=== PATIENT | male | born 1980 | race American Indian/Alaskan Native ===

== ENCOUNTER 2023-10-28 09:21 | Day surgery (SDC) | payer MEDICAID ==
[2023-10-23 13:46] LABS: BILIRUBIN,URINE NEGATIVE (Neg); CLARITY,URINE CLEAR (Clear); COLOR,URINE YELLOW (Yellow); GLUCOSE, URINE NEGATIVE (Neg); KETONES,URINE NEGATIVE (Neg); LEUKOCYTE ESTERASE ,URINE NEGATIVE (Neg); NITRITES, URINE NEGATIVE (Neg); OCCULT BLOOD,URINE TRACE-INTACT (Neg); PROTEIN,URINE 100 mg/dl (Neg); UROBILINOGEN,URINE 0.2 E.U/dL (0.2-1.0)
[2023-10-23 13:47] LABS: UA COLLECTION TYPE CLN CATCH MIDSTREAM
[2023-10-23 13:55] LABS: WBC,URINE 0-4 /HPF (0-4)
[2023-10-23 13:56] LABS: BACTERIA,URINE NONE SEEN /HPF (Neg); SQUAMOUS EPITHELIAL CELL,UR FEW /LPF (FEW)
[2023-10-23 13:58] LABS: BASOPHILS # (AUTO) 0.1 X10'3 (0-0.2); BASOPHILS % (AUTO) 1.3 % (0-1); EOSINOPHILS # (AUTO) 0.5 X10'3 (0-0.9); EOSINOPHILS % (AUTO) 7.6 % (0-6); HEMATOCRIT 39.6 % (42.0-52.0); HEMOGLOBIN 13.6 g/dl (14.0-17.9); LYMPHOCYTES # (AUTO) 2.1 X10'3 (1.1-4.8); LYMPHOCYTES % (AUTO) 29.8 % (21-51); MEAN CORPUSCULAR HEMOGLOBIN 34.2 PG (27.0-31.0); MEAN CORPUSCULAR HGB CONC 34.4 g/dL (33.0-36.5); MEAN CORPUSCULAR VOLUME 99.6 FL (78-98); MEAN PLATELET VOLUME 7.8 FL (7.4-10.4); MONOCYTES # (AUTO) 0.8 X10'3 (0-0.9); MONOCYTES % (AUTO) 11.2 % (2-12); NEUTROPHILS # (AUTO) 3.5 X10'3 (1.8-7.7); NEUTROPHILS % (AUTO) 50.1 % (42-75); PLATELET COUNT 318 X10'3 (140-440); RED BLOOD COUNT 3.97 X10'6 (4.70-6.10); RED CELL DISTRIBUTION WIDTH 14.3 % (11.5-14.5)
[2023-10-23 14:01] LABS: ALANINE AMINOTRANSFERASE 26 U/L (12-78); ANION GAP 11 (8-16); BILIRUBIN,TOTAL 0.3 MG/DL (0.1-1.0); CHLORIDE 107 MMOL/L (99-107); POTASSIUM 4.1 MMOL/L (3.5-5.1); SODIUM 142 MMOL/L (135-145); TOTAL CARBON DIOXIDE 23.8 MMOL/L (24-32)
[2023-10-23 14:22] LABS: ALBUMIN 3.1 G/DL (3.4-5.0); ALBUMIN/GLOBULIN RATIO 0.6 (1.1-1.5); ALKALINE PHOSPHATASE 124 IU/L (46-116); CALCIUM 8.8 MG/DL (8.5-10.1); GLUCOSE 86 MG/DL (70-104); TOTAL PROTEIN 8.3 G/DL (6.4-8.2)
[2023-10-23 14:31] LABS: ASPARTATE AMINO TRANSFERASE 29 U/L (10-37)
[2023-10-23 14:35] LABS: BLOOD UREA NITROGEN 19 MG/DL (7-18); BUN/CREATININE RATIO 15.8 (10.0-20.0); eGFR 66 ML/MIN
[2023-10-26] MEDS: DOCUMENT DATE & TIME OF BETA-BLOCKER PO ONE (05:30)
[~2023-10-28] VITALS: Ht 180.3 cm; Wt 84.9 kg
[2023-10-28] VITALS (11 sets, daily range): BP systolic 144–172; BP diastolic 97–117; PULSE 80–96; RESP 10–20; TEMP 98; O2SAT 85–100
[2023-10-28] MEDS: cefazolin 2gm/D5W 100mL 100 ML IV ONE (05:30)
[~2023-10-28 09:21] MED LIST: GLEC1TAB PO; INSU100C10 SQ; LANTUS SUBCUT; LOSA50TA64 PO; METF-900 PO; METO-395 PO; NALT50TA PO; SIMV-45 PO; SPIR25TA5 PO; THIA50TA10 PO; TRAM50TA2 PO
[2023-10-28] MEDS: ringers solution, lacted 1,000 ML IV SCH (10:06)
[2023-10-28] MEDS: famotidine 20mg tablet PO ONE (10:06)
[2023-10-28] MEDS ORDERED: BUPIVAcaine/PF 2.5mg/ml (0.25%) 10ml vial ONE ×3 (12:14→13:07)
[2023-10-28] MEDS ORDERED: povidone-iodine 10% ointment 1 APPLIC APPLIC TP ONE ×2 (12:14→12:15)
[2023-10-28] MEDS ORDERED: midazolam 1 mg/ML 2ml injection ONE (12:32)
[2023-10-28] MEDS ORDERED: fentaNYL/PF 50MCG/1 ML 2ML syringe ONE (12:32)
[2023-10-28] MEDS ORDERED: sevoflurane 250ml liquid IH ONE (12:47)
[2023-10-28] MEDS ORDERED: propofol inj 20 ML IV ONE ×2 (12:56→12:57)
[2023-10-28] MEDS ORDERED: LIDOcaine 1%/PF 5ML 10 MG/ML VIAL ONE (12:57)
[2023-10-28] MEDS ORDERED: ondansetron/PF 4mg/2ml inj ONE (12:57)
[2023-10-28] MEDS ORDERED: morphine 4 MG/ML inj SYRINge IV PRN (13:10)
[2023-10-28] MEDS ORDERED: ringers solution, lacted 1,000 ML IV SCH (13:10)
[2023-10-28] MEDS ORDERED: meperidine/PF 25mg/ml syringe IV PRN (13:10)
[2023-10-28] MEDS ORDERED: morphine 2 MG/ML inj. syringe IV PRN (13:10)
[2023-10-28] MEDS ORDERED: ondansetron/PF 4mg/2ml inj IV PRN (13:10)
[2023-10-28] MEDS: BUPIVAcaine/PF 2.5mg/ml (0.25%) 10ml vial IJ ONE (13:15)
[2023-10-28] MEDS: povidone-iodine 10% ointment 1 APPLIC APPLIC TP ONE (13:27)
[2023-10-28] MEDS: labetalol 20mg/4ml (5mg/ml) syringe IV PRN (14:04)
== END 2023-10-28 15:27 | disposition home or self-care (01) ==
LOC: PAS 09:21
PROVIDERS: ATTEND Podiatrist Foot & Ankle Surgery
DX: M86.8X7 Other osteomyelitis, ankle and foot (principal); I11.0 Hypertensive heart disease with heart failure; I50.9 Heart failure, unspecified; E11.9 Type 2 diabetes mellitus without complications; F41.9 Anxiety disorder, unspecified; F32.A Depression, unspecified; Z79.84 Long term (current) use of oral hypoglycemic drugs; Z79.891 Long term (current) use of opiate analgesic; Z79.899 Other long term (current) drug therapy; Z98.818 Other dental procedure status
CPT/HCPCS: 28315; 36415; 80053; 81001; 82948; 85025; 87070; 87075; 87077; 87186; A6223; J0690; J2250; J2405; J2704; J3010; J3490; J7030; J7120; Z7506; Z7512; 76000; A4618; A6449; A7000

== ENCOUNTER 2023-12-09 15:43 | Inpatient (IN) | payer MEDICAID ==
[~2023-12-09] VITALS: Ht 175.3 cm; Wt 85.0 kg
[2023-12-09 16:44] LABS: BASOPHILS # (AUTO) 0.1 X10'3 (0-0.2); BASOPHILS % (AUTO) 1.2 % (0-1); EOSINOPHILS # (AUTO) 0.4 X10'3 (0-0.9); EOSINOPHILS % (AUTO) 7.7 % (0-6); HEMATOCRIT 35.6 % (42.0-52.0); HEMOGLOBIN 11.9 g/dl (14.0-17.9); LYMPHOCYTES # (AUTO) 2.1 X10'3 (1.1-4.8); LYMPHOCYTES % (AUTO) 37.9 % (21-51); MEAN CORPUSCULAR HEMOGLOBIN 32.9 PG (27.0-31.0); MEAN CORPUSCULAR HGB CONC 33.4 g/dL (33.0-36.5); MEAN CORPUSCULAR VOLUME 98.4 FL (78-98); MEAN PLATELET VOLUME 6.8 FL (7.4-10.4); MONOCYTES # (AUTO) 0.6 X10'3 (0-0.9); MONOCYTES % (AUTO) 11.5 % (2-12); NEUTROPHILS # (AUTO) 2.3 X10'3 (1.8-7.7); NEUTROPHILS % (AUTO) 41.7 % (42-75); PLATELET COUNT 327 X10'3 (140-440); RED BLOOD COUNT 3.62 X10'6 (4.70-6.10); RED CELL DISTRIBUTION WIDTH 13.7 % (11.5-14.5); WHITE BLOOD COUNT 5.5 X10'3 (4.5-11.0)
[2023-12-09 17:08] LABS: ALANINE AMINOTRANSFERASE 66 U/L (12-78); ALBUMIN 2.8 G/DL (3.4-5.0); ALBUMIN/GLOBULIN RATIO 0.5 (1.1-1.5); ALKALINE PHOSPHATASE 191 IU/L (46-116); ANION GAP 11 (8-16); ASPARTATE AMINO TRANSFERASE 61 U/L (10-37); BILIRUBIN,TOTAL 0.3 MG/DL (0.1-1.0); BLOOD UREA NITROGEN 17 MG/DL (7-18); BUN/CREATININE RATIO 17.7 (10.0-20.0); CHLORIDE 106 MMOL/L (99-107); CREATININE 0.96 MG/DL (0.60-1.10); GLUCOSE 92 MG/DL (70-104); POTASSIUM 3.6 MMOL/L (3.5-5.1); SODIUM 138 MMOL/L (135-145); TOTAL CARBON DIOXIDE 20.8 MMOL/L (24-32); TOTAL PROTEIN 8.1 G/DL (6.4-8.2); eCRCL 105 ML/MIN; eGFR 85 ML/MIN
[2023-12-09 17:23] LABS: CALCIUM 8.3 MG/DL (8.5-10.1)
[2023-12-09 18:19] LABS: ALBUMIN 2.6 G/DL (3.4-5.0); ANION GAP 11 (8-16); BLOOD UREA NITROGEN 17 MG/DL (7-18); BUN/CREATININE RATIO 17.3 (10.0-20.0); CALCIUM 8.3 MG/DL (8.5-10.1); CHLORIDE 105 MMOL/L (99-107); CREATININE 0.98 MG/DL (0.60-1.10); GLUCOSE 100 MG/DL (70-104); POTASSIUM 3.7 MMOL/L (3.5-5.1); PROTHROMBIN TIME 10.7 SECONDS (9.0-12.0); SODIUM 139 MMOL/L (135-145); eCRCL 102 ML/MIN; eGFR 83 ML/MIN
[2023-12-09 18:36] LABS: APTT 26 SECONDS (22-32); PRE OP PROTIME 10.4 SECONDS (9.0-12.0)
[2023-12-09 21:05] VITALS: BP 156/108; PULSE 94; RESP 16; TEMP 98.1; O2SAT 100
[2023-12-09] MEDS ORDERED: morphine 2 MG/ML inj. syringe IV PRN (21:10)
[2023-12-09] MEDS ORDERED: ondansetron/PF 4mg/2ml inj IV PRN (21:10)
[2023-12-09] MEDS ORDERED: magnesium Cl slow-release 64mg tablet PO PRN (21:10)
[2023-12-09] MEDS ORDERED: potassium Cl 40MEQ/1/2NS 520ml 520 ML IV PRN (21:10)
[2023-12-09] MEDS ORDERED: magnesium 4gm in 100ml NS 100 ML IV PRN (21:10)
[2023-12-09] MEDS ORDERED: magnesium hydroxide 30ml (MOM) UD suspension PO PRN (21:10)
[2023-12-09] MEDS ORDERED: magnesium 2GM in 50ml NS 50 ML IV PRN (21:10)
[2023-12-09] MEDS ORDERED: acetaminophen 325mg tablet PO PRN (21:10)
[2023-12-09] MEDS ORDERED: potassium Cl 20 mEq SR tablet PO PRN (21:10)
[2023-12-09] MEDS ORDERED: mag hydrox/Alum hydrox/simeth 30ml oral suspension PO PRN (21:10)
[2023-12-09 21:15] VITALS: RESP 14; RESP 16; O2SAT 100; O2SAT 99
[2023-12-09] MEDS ORDERED: DEXTROSE 15 GM of carb/4 tabs (each vial/BOTTLE has 4 tablets) PO PRN ×2 (22:00)
[2023-12-09] MEDS ORDERED: dextrose 50%-water 50ml dispensing syringe IV PRN ×2 (22:00)
[2023-12-09] MEDS ORDERED: glucagon, human recombinant 1mg kit SUBCUT PRN (22:00)
[2023-12-09] MEDS: normal saline 1000ml 1,000 ML IV SCH (22:07)
[2023-12-09] MEDS: CefTRIAXone/D5W-Rocephin 1gm 50 ML IV SCH (22:17)
[2023-12-09] MEDS: VANCOmycin 1250MG/NS 250ml Bag 250 ML IV SCH (22:18)
[2023-12-09] MEDS: losartan 50mg tablet PO SCH (22:21)
[2023-12-09] MEDS: atorvastatin 20mg tablet PO SCH (22:22)
[2023-12-09 22:44] LABS: HEMOGLOBIN A1C 6.4 % (4.5-6.2)
[2023-12-09 22:47] LABS: C-REACTIVE PROTEIN 0.29 MG/DL (0.0-0.5)
[2023-12-10] VITALS (19 sets, daily range): BP systolic 91–160; BP diastolic 60–108; PULSE 69–91; RESP 11–18; TEMP 97.3–98.1; O2SAT 98–100
[2023-12-10 06:11] LABS: BASOPHILS # (AUTO) 0.1 X10'3 (0-0.2); BASOPHILS % (AUTO) 1.9 % (0-1); EOSINOPHILS # (AUTO) 0.6 X10'3 (0-0.9); EOSINOPHILS % (AUTO) 11.6 % (0-6); HEMATOCRIT 35.9 % (42.0-52.0); HEMOGLOBIN 11.6 g/dl (14.0-17.9); LYMPHOCYTES # (AUTO) 1.9 X10'3 (1.1-4.8); LYMPHOCYTES % (AUTO) 33.6 % (21-51); MEAN CORPUSCULAR HEMOGLOBIN 31.7 PG (27.0-31.0); MEAN CORPUSCULAR HGB CONC 32.4 g/dL (33.0-36.5); MEAN CORPUSCULAR VOLUME 97.9 FL (78-98); MONOCYTES # (AUTO) 0.7 X10'3 (0-0.9); MONOCYTES % (AUTO) 12.6 % (2-12); NEUTROPHILS # (AUTO) 2.2 X10'3 (1.8-7.7); NEUTROPHILS % (AUTO) 40.3 % (42-75); PLATELET COUNT 319 X10'3 (140-440); RED BLOOD COUNT 3.67 X10'6 (4.70-6.10); RED CELL DISTRIBUTION WIDTH 13.6 % (11.5-14.5); WHITE BLOOD COUNT 5.6 X10'3 (4.5-11.0)
[2023-12-10 06:16] LABS: ALBUMIN 2.5 G/DL (3.4-5.0); ANION GAP 7 (8-16); BLOOD UREA NITROGEN 12 MG/DL (7-18); BUN/CREATININE RATIO 15.2 (10.0-20.0); CALCIUM 8.1 MG/DL (8.5-10.1); CHLORIDE 106 MMOL/L (99-107); CHOLESTEROL 101 MG/DL (0-200); CREATININE 0.79 MG/DL (0.60-1.10); GLUCOSE 98 MG/DL (70-104); HDL CHOLESTEROL 50 MG/DL (35-60); POTASSIUM 3.4 MMOL/L (3.5-5.1); SODIUM 138 MMOL/L (135-145); eCRCL 119 ML/MIN; eGFR > 90 ML/MIN
[2023-12-10 06:17] LABS: LDL CHOLESTEROL 45 MG/DL (50-100); TRIGLYCERIDES 57 MG/DL (20-135)
[2023-12-10] MEDS: INSULIN LISPRO 100 UNIT/ML INSULN.PEN MULTI-DOSE SQ SCH (07:00)
[2023-12-10] MEDS: thiamine 100mg tablet PO SCH (07:23)
[2023-12-10] MEDS: potassium Cl 20 mEq SR tablet PO PRN (07:23)
[2023-12-10] MEDS: metoprolol succinate 25mg (24-HOUR) SR. Tablet PO SCH (07:23)
[2023-12-10] MEDS: traMADol 50MG tablet PO SCH (07:24)
[2023-12-10] MEDS: nicotine 7mg patch - 24hr TD SCH (07:24)
[2023-12-10] MEDS: PIBRENTASVIR PO SCH (08:00)
[2023-12-10] MEDS: GLECAPREVIR PO SCH (08:00)
[2023-12-10] MEDS: K and/or MAG REPLACEMENT MC SCH (08:00)
[2023-12-10] MEDS: enoxaparin 40mg/0.4ml syringe SUBCUT SCH (08:00)
[2023-12-10] MEDS: vancomycin/NS 1 GM ADD-VANTAGE 250 ML IV SCH (08:39)
[2023-12-10] MEDS: ringers solution, lacted 1,000 ML IV SCH ×2 (11:40→16:41)
[2023-12-10] MEDS: cefazolin 2gm/D5W 100mL 100 ML IV ONE (11:40)
[2023-12-10] MEDS ORDERED: hydrALAZINE 20mg/ml inj. IV PRN (15:00)
[2023-12-10] MEDS ORDERED: ondansetron/PF 4mg/2ml inj IV PRN (15:00)
[2023-12-10] MEDS ORDERED: labetalol 20mg/4ml (5mg/ml) syringe IV PRN (15:00)
[2023-12-10] MEDS ORDERED: fentaNYL/PF 50MCG/1 ML 2ML syringe IV PRN ×2 (15:00)
[2023-12-10] MEDS ORDERED: morphine 4 MG/ML inj SYRINge IV PRN (15:00)
[2023-12-10] MEDS ORDERED: morphine 2 MG/ML inj. syringe IV PRN (15:00)
[2023-12-10] MEDS ORDERED: BUPIVAcaine 2.5mg/ml inj 50ml vial (contains preservative) ONE (15:07)
[2023-12-10] MEDS ORDERED: povidone-iodine 10% ointment 1 APPLIC APPLIC TP ONE (15:07)
[2023-12-10] MEDS ORDERED: sevoflurane 250ml liquid IH ONE (15:25)
[2023-12-10] MEDS ORDERED: MIDAZolam 1 MG/ML 5ML VIAL ONE (15:30)
[2023-12-10] MEDS ORDERED: fentaNYL/PF 50MCG/1 ML 2ML syringe ONE (15:30)
[2023-12-10] MEDS ORDERED: ondansetron/PF 4mg/2ml inj ONE (15:35)
[2023-12-10] MEDS ORDERED: propofol inj 20 ML IV ONE (15:35)
[2023-12-10] MEDS ORDERED: albumin (Human) 5% 250ml 250 ML IV ONE (15:55)
[2023-12-10] MEDS: morphine 2 MG/ML inj. syringe IV PRN (20:09)
[2023-12-11] VITALS (7 sets, daily range): BP systolic 128–138; BP diastolic 78–90; PULSE 73–77; RESP 14–20; TEMP 97.8–98.5; O2SAT 98–100
[2023-12-11 05:52] LABS: BASOPHILS # (AUTO) 0.1 X10'3 (0-0.2); BASOPHILS % (AUTO) 1.2 % (0-1); EOSINOPHILS # (AUTO) 0.5 X10'3 (0-0.9); HEMATOCRIT 32.9 % (42.0-52.0); HEMOGLOBIN 11.2 g/dl (14.0-17.9); LYMPHOCYTES # (AUTO) 1.1 X10'3 (1.1-4.8); LYMPHOCYTES % (AUTO) 17.2 % (21-51); MEAN CORPUSCULAR HEMOGLOBIN 33.3 PG (27.0-31.0); MEAN CORPUSCULAR HGB CONC 33.9 g/dL (33.0-36.5); MEAN CORPUSCULAR VOLUME 98.2 FL (78-98); MONOCYTES # (AUTO) 0.7 X10'3 (0-0.9); MONOCYTES % (AUTO) 11.3 % (2-12); NEUTROPHILS # (AUTO) 4.1 X10'3 (1.8-7.7); NEUTROPHILS % (AUTO) 63.3 % (42-75); PLATELET COUNT 295 X10'3 (140-440); RED BLOOD COUNT 3.35 X10'6 (4.70-6.10); RED CELL DISTRIBUTION WIDTH 13.3 % (11.5-14.5); WHITE BLOOD COUNT 6.5 X10'3 (4.5-11.0)
[2023-12-11 05:56] LABS: ANION GAP 2 (8-16); BLOOD UREA NITROGEN 10 MG/DL (7-18); BUN/CREATININE RATIO 12.3 (10.0-20.0); CHLORIDE 107 MMOL/L (99-107); CREATININE 0.81 MG/DL (0.60-1.10); GLUCOSE 96 MG/DL (70-104); POTASSIUM 3.9 MMOL/L (3.5-5.1); SODIUM 137 MMOL/L (135-145); TOTAL CARBON DIOXIDE 27.9 MMOL/L (24-32); eCRCL 116 ML/MIN
[2023-12-11 05:57] LABS: ALBUMIN 2.5 G/DL (3.4-5.0); eGFR > 90 ML/MIN
[2023-12-11] MEDS: VANCOMYCIN LEVEL IV ONE (08:33)
[2023-12-11] MEDS: acetaminophen 325mg tablet PO PRN (12:41)
[2023-12-12 06:54] VITALS: BP 122/82; PULSE 80; RESP 16; TEMP 98.6; O2SAT 98
[2023-12-12 08:00] VITALS: RESP 16
[2023-12-12 08:06] LABS: BASOPHILS % (AUTO) 0.5 % (0-1); EOSINOPHILS # (AUTO) 0.4 X10'3 (0-0.9); EOSINOPHILS % (AUTO) 5.3 % (0-6); HEMATOCRIT 34.3 % (42.0-52.0); HEMOGLOBIN 11.4 g/dl (14.0-17.9); LYMPHOCYTES # (AUTO) 1.6 X10'3 (1.1-4.8); LYMPHOCYTES % (AUTO) 19.8 % (21-51); MEAN CORPUSCULAR HEMOGLOBIN 32.4 PG (27.0-31.0); MEAN CORPUSCULAR HGB CONC 33.2 g/dL (33.0-36.5); MEAN CORPUSCULAR VOLUME 97.5 FL (78-98); MEAN PLATELET VOLUME 7.5 FL (7.4-10.4); MONOCYTES # (AUTO) 0.9 X10'3 (0-0.9); MONOCYTES % (AUTO) 11.7 % (2-12); NEUTROPHILS # (AUTO) 5.1 X10'3 (1.8-7.7); NEUTROPHILS % (AUTO) 62.7 % (42-75); PLATELET COUNT 309 X10'3 (140-440); RED BLOOD COUNT 3.51 X10'6 (4.70-6.10); RED CELL DISTRIBUTION WIDTH 13.4 % (11.5-14.5); WHITE BLOOD COUNT 8.1 X10'3 (4.5-11.0)
[2023-12-12 08:21] LABS: ALBUMIN 2.5 G/DL (3.4-5.0); ANION GAP 6 (8-16); BLOOD UREA NITROGEN 11 MG/DL (7-18); BUN/CREATININE RATIO 14.5 (10.0-20.0); CALCIUM 8.1 MG/DL (8.5-10.1); CHLORIDE 105 MMOL/L (99-107); CREATININE 0.76 MG/DL (0.60-1.10); GLUCOSE 119 MG/DL (70-104); POTASSIUM 3.7 MMOL/L (3.5-5.1); SODIUM 137 MMOL/L (135-145); TOTAL CARBON DIOXIDE 26.4 MMOL/L (24-32); eCRCL 124 ML/MIN; eGFR > 90 ML/MIN
[2023-12-12] MEDS ORDERED: CEPH500C2 PO (09:46)
[2023-12-12 10:34] VITALS: BP 130/77; PULSE 82; RESP 16; TEMP 98.1; O2SAT 98
[2023-12-12 13:04] VITALS: RESP 16
== END 2023-12-12 13:15 | disposition home or self-care (01) | DRG 305 ==
LOC: ER 15:44 → ED HOLD 20:07 → UNDOADMIN 20:07 → ED HOLD 21:05 → SUR 3N 21:05 → ED HOLD 21:27
PROVIDERS: ADMIT Student in an Organized Health Care Education/Training Program; ATTEND Family Medicine
PROC: 0L8N0ZZ Division of Right Lower Leg Tendon, Open Approach (ICD-10-PCS; 2023-12-10)
PROC: 0Y6M0Z0 Detachment at Right Foot, Complete, Open Approach (ICD-10-PCS; principal; 2023-12-10 15:25)
DX: E11.69 Type 2 diabetes mellitus with other specified complication (principal); I11.0 Hypertensive heart disease with heart failure; M86.171 Other acute osteomyelitis, right ankle and foot; I50.32 Chronic diastolic (congestive) heart failure; B19.20 Unspecified viral hepatitis C without hepatic coma; E87.6 Hypokalemia; F17.210 Nicotine dependence, cigarettes, uncomplicated; Z79.899 Other long term (current) drug therapy; Z79.84 Long term (current) use of oral hypoglycemic drugs
CPT/HCPCS: 36415; 71045; 73630; 80048; 80053; 80061; 80202; 82948; 83036; 83605; 85025; 85610; 85651; 85730; 86140; 87040; 87070; 87075; 87081; 93005; 93306; 93926; 97116; 97161; 97530; 99285; A4618; A6223; A6446; A6449; A7000; G0378; J0690; J0696; J1650; J1815; J2250; J2270; J2405; J2704; J3010; J3370; J3490; J7030; J7120; L4360; P9045